=== PATIENT | female | born 1940 | race Caucasian/White ===

== ENCOUNTER 2019-04-23 07:13 | Day surgery (SDC) | payer MEDICARE, BC ==
[2019-04-16 14:14] LABS: BASOPHILS % (AUTO) 0.3 % (0-1); EOSINOPHILS % (AUTO) 0.1 % (0-6); LYMPHOCYTES # (AUTO) 1.5 X10'3 (1.1-4.8); LYMPHOCYTES % (AUTO) 15.5 % (21-51); MEAN CORPUSCULAR HEMOGLOBIN 30.4 PG (27.0-31.0); MEAN CORPUSCULAR HGB CONC 33.7 g/dL (33.0-36.5); MEAN CORPUSCULAR VOLUME 90.3 FL (78-98); MEAN PLATELET VOLUME 8.7 FL (7.4-10.4); MONOCYTES # (AUTO) 0.6 X10'3 (0-0.9); MONOCYTES % (AUTO) 6.5 % (2-12); NEUTROPHILS # (AUTO) 7.4 X10'3 (1.8-7.7); NEUTROPHILS % (AUTO) 77.6 % (42-75); PRE OP HEMATOCRIT 40.6 % (35.0-45.0); PRE OP HEMOGLOBIN 13.7 g/dL (12.0-16.0); PRE OP PLATELET COUNT 318 X10'3 (140-440); RED CELL DISTRIBUTION WIDTH 13.2 % (11.5-14.5)
[2019-04-16 14:25] LABS: ALBUMIN 3.8 G/DL (3.4-5.0); ALBUMIN/GLOBULIN RATIO 1.1 (1.1-1.5); ALKALINE PHOSPHATASE 114 IU/L (46-116); BLOOD UREA NITROGEN 22 MG/DL (7-18); BUN/CREATININE RATIO 23.4 (6.6-38.0); CALCIUM 8.9 MG/DL (8.5-10.1); CHLORIDE 102 MMOL/L (99-107); CREATININE 0.94 MG/DL (0.40-0.90); PRE OP ALT 42 U/L (30-65); PRE OP ANION GAP 8 (8-16); PRE OP AST 21 U/L (10-37); PRE OP BILIRUB, TOTAL 0.4 MG/DL (0.0-1.0); PRE OP GLUCOSE 174 MG/DL (70-104); PRE OP POTASSIUM 4.1 MMOL/L (3.4-5.1); PRE OP SODIUM 135 MMOL/L (135-145); TOTAL CARBON DIOXIDE 25.2 MMOL/L (24-32); TOTAL PROTEIN 7.4 G/DL (6.4-8.2); eGFR 57 ML/MIN
[2019-04-16 14:27] LABS: PRE OP PROTIME 10.1 SECONDS (9.0-12.0)
[2019-04-23] VITALS (7 sets, daily range): BP systolic 122–134; BP diastolic 45–74
[~2019-04-23] VITALS: Ht 163.8 cm; Wt 77.1 kg
[~2019-04-23 07:13] MED LIST: ALBU1.257 NEB; ALBU18HF2 INH; AMLO5TAB PO; ATOR40TA71 PO; BUPIVAcaine/PF 2.5mg/ml (0.25%) 10ml vial ONE; EZET10TA21 PO; METO50TA17 PO
[2019-04-23] MEDS ORDERED: cefazolin/dext.iso 2gm/100 ML IV ONE (07:45)
[2019-04-23] MEDS ORDERED: ringers solution, lacted 1,000 ML IV SCH (07:45)
[2019-04-23] MEDS ORDERED: albuterol 2.5 MG/3 ML nebule NEB ONE (07:45)
[2019-04-23] MEDS ORDERED: famotidine 20mg tablet PO ONE (07:45)
[2019-04-23] MEDS ORDERED: DOCUMENT DATE & TIME OF BETA-BLOCKER PO ONE (07:45)
[2019-04-23] MEDS ORDERED: LIDOcaine 0.5% (5mg/ml) 50ml vial ONE (08:31)
[2019-04-23] MEDS ORDERED: midazolam 2 mg/2 ml injection ONE (09:13)
[2019-04-23] MEDS ORDERED: fentaNYL/PF 50MCG/1 ML 2ML syringe ONE (09:13)
--- NOTE | 2019-04-23 09:45 | NUR ---
Received from OR via BED, accompanied by Anesthesiologist DR JOHNSON and report given by Anesthesiolgist. PATIENT A&OX4, DENIES PAIN, V/S WNL, NEUROVASCULAR CHECKS INTACT, 20G PIV LUE, SCD ON, DRESSING TO RIGHT WRIST CDI ELEVATED WITH ICEBAG APPLIED.
--- NOTE | 2019-04-23 10:25 | NUR ---
PATIENT A&OX4, DENIES PAIN, V/S WNL, NEUROVASCULAR CHECKS INTACT, 20G PIV LUE D/C, SCD OFF, DRESSING TO RIGHT WRIST CDI ELEVATED WITH ICEBAG APPLIED. I HAVE REVIEWED D/C INSTRUCTIONS WITH PATIENT AND FAMILY AND THEY HAVE VERBALIZED UNDERSTANDING. PATIENT D/C HOME WITH ALL BELONGINGS AND FAMILY GAVE TRANSPORT HOME.
== END 2019-04-23 10:25 | disposition home or self-care (01) ==
LOC: PAS 07:13
PROVIDERS: ATTEND Orthopaedic Surgery Hand Surgery
DX: G56.01 Carpal tunnel syndrome, right upper limb (principal); J45.909 Unspecified asthma, uncomplicated; I10 Essential (primary) hypertension; Z79.899 Other long term (current) drug therapy; Z79.01 Long term (current) use of anticoagulants
CPT/HCPCS: 36415; 64721; 80053; 82948; 85025; 85610; 85730; 93005; A6222; J2001; J2250; J3010; J3490; A4215; A6449; J7120

== ENCOUNTER 2021-06-27 09:48 | Outpatient (CLI) | payer MEDICARE ==
[~2021-06-27 09:48] MED LIST changes: -BUPIVAcaine/PF 2.5mg/ml (0.25%) 10ml vial ONE; -EZET10TA21 PO; +EZET10TA6 PO
[2021-06-27 10:33] LABS: BASOPHILS % (AUTO) 0.6 % (0-1); EOSINOPHILS # (AUTO) 0.1 X10'3 (0-0.9); EOSINOPHILS % (AUTO) 1.1 % (0-6); HEMOGLOBIN 12.6 g/dl (12.0-16.0); LYMPHOCYTES # (AUTO) 1.4 X10'3 (1.1-4.8); LYMPHOCYTES % (AUTO) 20.2 % (21-51); MEAN CORPUSCULAR HGB CONC 33.9 g/dL (33.0-36.5); MEAN CORPUSCULAR VOLUME 88.5 FL (78-98); MONOCYTES # (AUTO) 0.4 X10'3 (0-0.9); MONOCYTES % (AUTO) 5.6 % (2-12); NEUTROPHILS # (AUTO) 5.1 X10'3 (1.8-7.7); NEUTROPHILS % (AUTO) 72.5 % (42-75); PLATELET COUNT 287 X10'3 (140-440); RED BLOOD COUNT 4.18 X10'6 (4.20-5.60); WHITE BLOOD COUNT 7.1 X10'3 (4.5-11.0)
[2021-06-27 10:42] LABS: PARTIAL THROMBOPLASTIN TIME 23 SECONDS (22-32)
[2021-06-27 10:43] LABS: ALANINE AMINOTRANSFERASE 26 U/L (12-78); ALBUMIN 3.6 G/DL (3.4-5.0); ALBUMIN/GLOBULIN RATIO 0.8 (1.1-1.5); ALKALINE PHOSPHATASE 117 IU/L (46-116); ASPARTATE AMINO TRANSFERASE 25 U/L (10-37); BILIRUBIN,TOTAL 0.5 MG/DL (0.1-1.0); BLOOD UREA NITROGEN 15 MG/DL (7-18); BUN/CREATININE RATIO 16.9 (6.6-38.0); CHLORIDE 103 MMOL/L (99-107); CREATININE 0.89 MG/DL (0.40-0.90); GLUCOSE 87 MG/DL (70-104); POTASSIUM 3.9 MMOL/L (3.5-5.1); TOTAL CARBON DIOXIDE 25.1 MMOL/L (24-32); TOTAL PROTEIN 7.9 G/DL (6.4-8.2); eGFR 61 ML/MIN
[2021-06-27 10:45] LABS: ANION GAP 9 (8-16); SODIUM 137 MMOL/L (135-145)
[2021-06-27] MEDS ORDERED: IODIXANOL 320 MG/ML INFUS..BTL 100ML IV ONE (10:50)
[2021-06-27] MEDS ORDERED: IODIXANOL 320 MG/ML INFUS..BTL 50ML IV ONE (10:51)
[2021-07-11] MEDS ORDERED: OMEG1CAP13 PO (13:29)
[2021-07-11] MEDS ORDERED: LOSA25TA41 PO (13:29)
[2021-07-11] MEDS ORDERED: CHOL400T57 PO (13:29)
[2021-07-11] MEDS ORDERED: IPRA3AMP9 IH (13:29)
[2021-07-11] MEDS ORDERED: FLUT1DIS10 INH (13:29)
[2021-07-11] MEDS ORDERED: MULT-1085 PO (13:29)
[2021-07-11] MEDS ORDERED: ASPI81TA52 PO (13:29)
== END 2021-06-27 23:59 | disposition home or self-care (01) ==
LOC: RAD 09:48
PROVIDERS: ATTEND Internal Medicine Cardiovascular Disease
DX: K44.9 Diaphragmatic hernia without obstruction or gangrene (principal); J98.11 Atelectasis; M43.16 Spondylolisthesis, lumbar region; I70.0 Atherosclerosis of aorta; R94.2 Abnormal results of pulmonary function studies; I65.23 Occlusion and stenosis of bilateral carotid arteries; Z20.822 Contact with and (suspected) exposure to COVID-19
CPT/HCPCS: 36415; 71046; 71275; 74174; 80053; 85025; 85610; 85730; 87635; 93005; 93880; 94010; 94727; 94729; C9803; Q9967

== ENCOUNTER 2021-07-12 06:49 | Inpatient (IN) | payer MEDICARE ==
[2021-07-11 13:59] LABS: CLARITY,URINE SLIGHTLY CLOUDY (Clear); COLOR,URINE YELLOW (Yellow); GLUCOSE, URINE NEGATIVE (Neg); KETONES,URINE NEGATIVE (Neg); LEUKOCYTE ESTERASE ,URINE MODERATE (Neg); NITRITES, URINE NEGATIVE (Neg); OCCULT BLOOD,URINE NEGATIVE (Neg); PH,URINE 6.5 (4.8-8.0); PROTEIN,URINE NEGATIVE (Neg); UA COLLECTION TYPE CLN CATCH MIDSTREAM
[2021-07-11 14:01] LABS: BACTERIA,URINE FEW /HPF (Neg); CAL OXALATE CRYSTALS 1+ /HPF (NEGATIVE); MUCUS STRANDS NONE SEEN /LPF (Neg); PRE OP PROTIME 10.1 SECONDS (9.0-12.0); RBC,URINE NONE SEEN /HPF (0-2); SQUAMOUS EPITHELIAL CELL,UR FEW /LPF (FEW); TRANSITIONAL EPI CELLS,URINE MODERATE /HPF; WBC CLUMPS,URINE FEW /HPF (NEGATIVE)
[2021-07-11 14:02] LABS: BASOPHILS # (AUTO) 0.1 X10'3 (0-0.2); EOSINOPHILS # (AUTO) 0.7 X10'3 (0-0.9); EOSINOPHILS % (AUTO) 11.3 % (0-6); LYMPHOCYTES # (AUTO) 1.9 X10'3 (1.1-4.8); LYMPHOCYTES % (AUTO) 28.5 % (21-51); MEAN CORPUSCULAR HEMOGLOBIN 30.3 PG (27.0-31.0); MEAN CORPUSCULAR HGB CONC 34.1 g/dL (33.0-36.5); MEAN CORPUSCULAR VOLUME 88.7 FL (78-98); MEAN PLATELET VOLUME 9.3 FL (7.4-10.4); MONOCYTES # (AUTO) 0.7 X10'3 (0-0.9); MONOCYTES % (AUTO) 10.8 % (2-12); NEUTROPHILS # (AUTO) 3.2 X10'3 (1.8-7.7); NEUTROPHILS % (AUTO) 48.4 % (42-75); PRE OP HEMATOCRIT 37.8 % (35.0-45.0); PRE OP HEMOGLOBIN 12.9 g/dL (12.0-16.0); PRE OP PLATELET COUNT 255 X10'3 (140-440); RED BLOOD COUNT 4.26 X10'6 (4.20-5.60)
[2021-07-11 14:12] LABS: ALBUMIN 3.8 G/DL (3.4-5.0); ALKALINE PHOSPHATASE 136 IU/L (46-116); BLOOD UREA NITROGEN 14 MG/DL (7-18); BUN/CREATININE RATIO 18.2 (6.6-38.0); CALCIUM 8.8 MG/DL (8.5-10.1); CHLORIDE 102 MMOL/L (99-107); CREATININE 0.77 MG/DL (0.40-0.90); PRE OP ALT 25 U/L (30-65); PRE OP ANION GAP 9 (8-16); PRE OP AST 23 U/L (10-37); PRE OP BILIRUB, TOTAL 0.5 MG/DL (0.0-1.0); PRE OP GLUCOSE 89 MG/DL (70-104); PRE OP POTASSIUM 4.3 MMOL/L (3.4-5.1); PRE OP SODIUM 136 MMOL/L (135-145); TOTAL CARBON DIOXIDE 24.6 MMOL/L (24-32); TOTAL PROTEIN 7.8 G/DL (6.4-8.2); eGFR 72 ML/MIN
[2021-07-12] VITALS (19 sets, daily range): BP systolic 121–164; BP diastolic 57–82
[~2021-07-12] VITALS: Ht 162.6 cm; Wt 71.9 kg
[~2021-07-12 06:49] MED LIST changes: -ALBU1.257 NEB; +ASPI81TA52 PO; +CHOL400T57 PO; +DOCUMENT DATE & TIME OF BETA-BLOCKER PO ONE; +FLUT1DIS10 INH; +IPRA3AMP9 IH; +LOSA25TA41 PO; +MULT-1085 PO; +OMEG1CAP13 PO; +aspirin 325mg tablet PO ONE; +cefazolin/dext.iso 2gm/50ml IV ONE; +famotidine 20mg tablet PO ONE; +nitroPRUSSIDE 0.2mg/mL in NS 100 ML IV PRN; +ondansetron/PF 4mg/2ml inj IV PRN; +phenylephrine inj 50 MG in normal saline 250ml IV soln 245 ML IV PRN; +ringers solution, lacted 1,000 ML IV SCH; +vancomycin 1,500 MG in NS 300ml IV soln IV ONE
[2021-07-12] MEDS ORDERED: METO50TA16 PO (08:59)
[2021-07-12] MEDS ORDERED: iohexol 350MG/ML 100ml bottle IV ONE (10:51)
[2021-07-12] MEDS ORDERED: iohexol 350 MG/ML 50ML vial IV ONE (10:51)
[2021-07-12] MEDS ORDERED: LIDOcaine 1% (10mg/ml)w/preservative injection 20ml MDV ONE (10:51)
[2021-07-12] MEDS ORDERED: midazolam 1 mg/ML 2ml injection ONE (10:56)
[2021-07-12] MEDS ORDERED: fentaNYL/PF 50MCG/1 ML 2ML syringe ONE ×2 (10:56→11:45)
[2021-07-12] MEDS ORDERED: ketamine 50mg/5ml syringe ONE (11:09)
[2021-07-12] MEDS ORDERED: LIDOcaine 1%/PF 5ML 10 MG/ML VIAL ONE (12:14)
[2021-07-12] MEDS ORDERED: epiNEPHrine 1 mg/ml inj ONE (12:14)
[2021-07-12] MEDS ORDERED: propofol inj 20 ML IV ONE (12:14)
--- NOTE | 2021-07-12 12:21 | NUR ---
Received from OR via BED, accompanied by Anesthesiologist DR. JAMISON and report given by Anesthesiolgist AND OR NURSE. PT ARRIVED DROWSY ON ROOM AIR. 20G IV TO LEFT HAND, ART LINE IN LEFT WRIST. LR AND NIPRIDE CURRENTLY RUNNING. BILATERAL GROIN DRESSINGS C/D/I NO SWELLING NOTED. PEDAL PULSES STRONG. NEURO CHECKS COMPLETED. PUSH, PULL, SKIN FORMER, SMILE ALL WITHIN NORMAL LIMITS. VSS. WILL CONTINUE TO MONITOR AND RECHECK GROIN SITES. Addendum: 07/12/21 at 1253 by Leslie Mast RN Amended: Links added.
[2021-07-12] MEDS ORDERED: labetalol 20mg/4ml (5mg/ml) syringe IV PRN (12:30)
[2021-07-12] MEDS: normal saline 1000ml 1,000 ML IV SCH ×2 (12:30→22:30)
[2021-07-12] MEDS ORDERED: potassium Cl 20 mEq SR tablet PO PRN (12:30)
[2021-07-12] MEDS ORDERED: docusate sod 100mg capsule PO PRN (12:30)
[2021-07-12] MEDS ORDERED: ringers solution, lacted 1,000 ML IV SCH (12:30)
[2021-07-12] MEDS ORDERED: acetaminophen 325mg tablet PO PRN (12:30)
[2021-07-12] MEDS ORDERED: potassium CL 10mEq/100ml bag 100 ML IV PRN (12:30)
[2021-07-12] MEDS ORDERED: morphine 2 MG/ML inj. syringe IV PRN (12:30)
[2021-07-12] MEDS ORDERED: potassium Cl 40MEQ/1/2NS 520ml 520 ML IV PRN (12:30)
[2021-07-12] MEDS ORDERED: ondansetron/PF 4mg/2ml inj IV PRN ×2 (12:30)
[2021-07-12] MEDS ORDERED: magnesium 2GM in 50ml NS 50 ML IV PRN (12:30)
[2021-07-12] MEDS ORDERED: diphenhydrAMINE 25mg capsule PO PRN (12:30)
[2021-07-12] MEDS ORDERED: magnesium 4gm in 100ml NS 100 ML IV PRN (12:30)
[2021-07-12] MEDS ORDERED: ALPRAZolam 0.25mg tablet PO PRN (12:30)
[2021-07-12] MEDS ORDERED: pantoprazole 40mg Tablet.DR PO PRN (12:30)
[2021-07-12] MEDS ORDERED: ipratropium/albuterol 3ml nebule IH PRN (12:35)
[2021-07-12] MEDS ORDERED: ALBUTEROL INHALER 1 PUFF/90 MCG INHALER IH PRN (12:35)
--- NOTE | 2021-07-12 13:20 | NUR ---
REASSESSED DRESSING TO R GROIN THAT IS C/D/I, NO SWELLING OR BLEEDING NOTED. NEURO ASSESSMENT COMPLETED. PUSH, PULL, PHILOSOPHY INSTRUCTOR, SMILE ALL WITHIN NORMAL LIMITS. BILATERAL PEDAL PULSES STRONG. Addendum: 07/12/21 at 1355 by Leslie Mast RN Amended: Links added.
--- NOTE | 2021-07-12 13:36 | NUR ---
I have received report from Leslie SPRINGER, for room 3012C and had the opportunity to ask questions and assume patient care.
--- NOTE | 2021-07-12 13:51 | NUR ---
Report called to receiving nurse AMY SPRINGER IN PCU. Transferred via BED WITH GLASSES, FAMILY HAS ALL OTHER BELONGINGS. Special Issues communicated to receiving nurse. VSS UPON TRANSFER. RN AT BEDSIDE TO ASSUME CARE. BED IN LOW POSITION WITH 2 RAILS UP. CALL LIGHT IN REACH. Addendum: 07/12/21 at 1358 by Leslie Mast RN Amended: Links added.
[2021-07-12] MEDS: hydrALAZINE 20mg/ml inj. IV PRN (15:18)
[2021-07-12] MEDS: sod chloride 0.9% 10ml flush syringe IV SCH (16:00)
[2021-07-12] MEDS: ceFAZolin 1GM/D5W- ADD-VANTAGE 50 ML IV SCH (17:00)
--- NOTE | 2021-07-12 18:00 | NUR ---
7Patient in room PCU 3012. I have received report from JORGE L SPRINGER and had the opportunity to ask questions and assume patient care.
--- NOTE | 2021-07-12 18:30 | NUR ---
Orientee documentation: I have reviewed and agree with all interventions, assessments performed and documented by GIAN Rosen.
--- NOTE | 2021-07-12 18:34 | NUR ---
Problems reprioritized. Patient report given, questions answered & plan of care reviewed with GIAN Bryant.
[2021-07-12] MEDS ORDERED: proCHLORperazine 10 MG/2 ml inj IV PRN (19:10)
[2021-07-12] MEDS: vancomycin/NS 1 GM ADD-VANTAGE 250 ML IV SCH (19:31)
[2021-07-12] MEDS: metoprolol tartrate 50mg tablet PO SCH (19:48)
[2021-07-12] MEDS ORDERED: FLUTICASONE INH SCH (20:00)
[2021-07-12] MEDS ORDERED: SALMETEROL INH SCH (20:00)
[2021-07-13] MEDS: ceFAZolin 1GM/D5W- ADD-VANTAGE 50 ML IV SCH ×2 (00:02→07:42)
[2021-07-13] MEDS: sod chloride 0.9% 10ml flush syringe IV SCH ×2 (00:03→07:43)
[2021-07-13] MEDS: hydrALAZINE 20mg/ml inj. IV PRN (00:39)
[2021-07-13 02:00] VITALS: BP 149/67
[2021-07-13 06:00] VITALS: BP 142/62
--- NOTE | 2021-07-13 06:08 | NUR ---
Problems reprioritized. Patient report given, questions answered & plan of care reviewed with TIANNA SPRINGER.
[2021-07-13 06:11] LABS: BASOPHILS % (AUTO) 0.6 % (0-1); EOSINOPHILS # (AUTO) 0.1 X10'3 (0-0.9); HEMATOCRIT 35.4 % (35.0-45.0); HEMOGLOBIN 11.9 g/dl (12.0-16.0); LYMPHOCYTES % (AUTO) 13.9 % (21-51); MEAN CORPUSCULAR HEMOGLOBIN 29.8 PG (27.0-31.0); MEAN CORPUSCULAR HGB CONC 33.8 g/dL (33.0-36.5); MEAN CORPUSCULAR VOLUME 88.3 FL (78-98); MEAN PLATELET VOLUME 8.9 FL (7.4-10.4); MONOCYTES # (AUTO) 0.7 X10'3 (0-0.9); MONOCYTES % (AUTO) 9.2 % (2-12); NEUTROPHILS # (AUTO) 5.3 X10'3 (1.8-7.7); NEUTROPHILS % (AUTO) 74.3 % (42-75); PLATELET COUNT 206 X10'3 (140-440); RED BLOOD COUNT 4.01 X10'6 (4.20-5.60); RED CELL DISTRIBUTION WIDTH 14.2 % (11.5-14.5); WHITE BLOOD COUNT 7.2 X10'3 (4.5-11.0)
[2021-07-13 06:49] LABS: ALANINE AMINOTRANSFERASE 23 U/L (12-78); ALBUMIN 3.2 G/DL (3.4-5.0); ALBUMIN/GLOBULIN RATIO 0.9 (1.1-1.5); ALKALINE PHOSPHATASE 113 IU/L (46-116); ANION GAP 8 (8-16); ASPARTATE AMINO TRANSFERASE 30 U/L (10-37); BILIRUBIN,TOTAL 0.9 MG/DL (0.1-1.0); BLOOD UREA NITROGEN 10 MG/DL (7-18); BUN/CREATININE RATIO 12.8 (6.6-38.0); CALCIUM 8.5 MG/DL (8.5-10.1); CHLORIDE 102 MMOL/L (99-107); CREATININE 0.78 MG/DL (0.40-0.90); GLUCOSE 95 MG/DL (70-104); SODIUM 136 MMOL/L (135-145); TOTAL CARBON DIOXIDE 26.4 MMOL/L (24-32); TOTAL PROTEIN 6.9 G/DL (6.4-8.2); eGFR 71 ML/MIN
[2021-07-13] MEDS: metoprolol tartrate 50mg tablet PO SCH (07:42)
[2021-07-13] MEDS ORDERED: multivitamins, therapeutics tablet PO SCH (08:00)
[2021-07-13] MEDS ORDERED: cholecalciferol (vitamin D3) 1,000 unit (25mcg) tablet PO SCH (08:00)
[2021-07-13] MEDS ORDERED: ezetimibe 10mg tablet PO SCH (08:00)
[2021-07-13] MEDS ORDERED: amLODIPine 5mg tablet PO SCH (08:00)
[2021-07-13] MEDS ORDERED: aspirin 81mg, enteric-coated 1 TAB TABLET.DR PO SCH (08:00)
[2021-07-13] MEDS ORDERED: atorvastatin 20mg tablet PO SCH (08:00)
[2021-07-13] MEDS: normal saline 1000ml 1,000 ML IV SCH (08:30)
[2021-07-13] MEDS: vancomycin/NS 1 GM ADD-VANTAGE 250 ML IV SCH (09:03)
[2021-07-13 11:00] VITALS: BP 133/65
--- NOTE | 2021-07-13 14:54 | NUR ---
Pt stable for D/C Pt stable for D/C per MD orders. All d/c ppwk reviewed with pt and pt family. Pt verbalized understanding. NO new RX. All personal belongings were sent with patient including, not not limited to, cell phone. Pt was wheeled down by nursing staff to private vehicle where was waiting. No questions, comments or concerns at this time. Pt and family has verbalized understanding of all d/c instructions including all follow up appt's.
--- NOTE | 2021-07-13 15:00 | NUR ---
1822 07/12/21 Output was charted incorrectly. Pt does NOT have ileostomy.
== END 2021-07-13 13:57 | disposition home or self-care (01) | DRG 267 ==
LOC: PAS IN 06:49 → EDSTATUS 10:00 → PCU 3S 13:45
PROVIDERS: ADMIT Internal Medicine Cardiovascular Disease; ATTEND Internal Medicine Cardiovascular Disease
PROC: B41D1ZZ Fluoroscopy of Aorta and Bilateral Lower Extremity Arteries using Low Osmolar Contrast (ICD-10-PCS; 2021-07-12)
PROC: 02RF38Z Replacement of Aortic Valve with Zooplastic Tissue, Percutaneous Approach (ICD-10-PCS; principal; 2021-07-12 10:55)
DX: I35.0 Nonrheumatic aortic (valve) stenosis (principal); Z00.6 Encounter for examination for normal comparison and control in clinical research program; I25.10 Atherosclerotic heart disease of native coronary artery without angina pectoris; E78.5 Hyperlipidemia, unspecified; I10 Essential (primary) hypertension; J44.9 Chronic obstructive pulmonary disease, unspecified
CPT/HCPCS: 33361; 36415; 71045; 80053; 81001; 82948; 83735; 83880; 85025; 85347; 85610; 85730; 86885; 86900; 86901; 86920; 87081; 87088; 87635; 93005; 93308; A4618; A6258; A6449; C1756; C1760; C1769; C1894; G0378; J0171; J0360; J0690; J0780; J1644; J2001; J2250; J2370; J2405; J2704; J3010; J3370; J7040; J7050; J7120; Q9967